=== PATIENT | female | born 1970 | race Caucasian/White ===

== ENCOUNTER 2020-09-16 06:00 | Day surgery (SDC) | payer OTHER ==
[2020-09-12 14:42] VITALS: BMI 22.8
[2020-09-16] MEDS ORDERED: IBUPROFEN 800 MG/8 ML IJ IVPB PRN (07:39)
[2020-09-16] MEDS ORDERED: oxyCODONE HCL 5 MG TABLET PO PRN (07:39)
[2020-09-16] MEDS ORDERED: ONDANSETRON 4 MG/2 ML VIAL IVPUSH PRN ×2 (07:39→08:30)
[2020-09-16] MEDS ORDERED: IBUPROFEN 600 MG TABLET (FP) PO PRN (07:39)
[2020-09-16] MEDS ORDERED: ELECTROLYTE-148 SOLN 1,000 ML IV SCH (07:45)
[2020-09-16] MEDS ORDERED: LACTATED RINGERS SOLUTION 1,000 ML IV SCH (08:30)
[2020-09-16 11:57] VITALS: BP 130/67; PULSE 68; TEMP 98.1
== END 2020-09-16 11:30 | disposition home or self-care (01) ==
LOC: JASU-SURG 06:00
PROVIDERS: ATTEND Obstetrics & Gynecology
PROC: 0UB98ZX Excision of Uterus, Via Natural or Artificial Opening Endoscopic, Diagnostic (ICD-10-PCS; principal; 2020-09-16 07:30)
PROC: 0UDB7ZX Extraction of Endometrium, Via Natural or Artificial Opening, Diagnostic (ICD-10-PCS; 2020-09-16 07:30)
DX: N92.4 Excessive bleeding in the premenopausal period (principal); N84.0 Polyp of corpus uteri
CPT/HCPCS: 81025; 88305-TC; 94760

== ENCOUNTER 2020-10-14 04:30 | Day surgery (SDC) | payer OTHER ==
[2020-10-13 15:36] VITALS: BMI 21.9
[2020-10-14 06:27] LABS: HEMOGLOBIN 11.9 GM/dL (10.7-15.3); MCH 30.5 pg (25.7-33.7); MEAN CELL VOLUME 89.7 fl (80-96); MEAN PLT VOLUME 8.8 fl (7.5-11.1); PLATELET COUNT 245 K/MM3 (134-434); RDW 17.2 % (11.6-15.6)
[2020-10-14 06:54] LABS: ALBUMIN 3.8 g/dl (3.4-5.0); CALCIUM 8.5 mg/dL (8.5-10.1)
[2020-10-14 06:58] LABS: CREATININE 0.5 mg/dL (0.55-1.3)
[2020-10-14 06:59] LABS: BILIRUBIN,TOTAL 0.2 mg/dL (0.2-1); TOT PROT 6.6 g/dl (6.4-8.2)
[2020-10-14] MEDS ORDERED: PROPOFOL 20 ML ONE ×2 (07:18→08:11)
[2020-10-14] MEDS ORDERED: MIDAZOLAM HCL 2 MG/2 ML SINGLE DOSE VIAL ONE (07:19)
[2020-10-14] MEDS ORDERED: oxyCODONE HCL 5 MG TABLET PO PRN (07:35)
[2020-10-14] MEDS ORDERED: IBUPROFEN 800 MG/8 ML IJ IVPB PRN (07:35)
[2020-10-14] MEDS ORDERED: ONDANSETRON 4 MG/2 ML VIAL IVPUSH PRN (07:35)
[2020-10-14] MEDS ORDERED: IBUPROFEN 600 MG TABLET (FP) PO PRN (07:35)
[2020-10-14] MEDS ORDERED: ELECTROLYTE-148 SOLN 1,000 ML IV SCH (07:45)
[2020-10-14] MEDS ORDERED: LIDOCAINE HCL/PF 2% SDV 5ML VIAL ONE (08:04)
[2020-10-14] MEDS ORDERED: DEXAMETHASONE SOD PHOSPHATE 4 MG/1 ML VIAL ONE (08:19)
[2020-10-14] MEDS ORDERED: KETOROLAC TROMETHAMINE 30 MG/1 ML VIAL ONE (08:34)
[2020-10-14] MEDS ORDERED: LACTATED RINGERS SOLUTION 1,000 ML IV SCH (09:30)
[2020-10-14] MEDS ORDERED: oxyCODONE HCL 5 MG TABLET ONE (12:38)
[2020-10-14 13:53] VITALS: BP 139/85; PULSE 64; TEMP 98
== END 2020-10-14 13:53 | disposition home or self-care (01) ==
LOC: JASU-SURG 04:30
PROVIDERS: ATTEND Obstetrics & Gynecology
PROC: 0U5B8ZZ Destruction of Endometrium, Via Natural or Artificial Opening Endoscopic (ICD-10-PCS; principal; 2020-10-14 08:02)
DX: N92.0 Excessive and frequent menstruation with regular cycle (principal)
CPT/HCPCS: 36415; 80053; 84703; 85027; 94760